=== PATIENT | male | born 1970 | race American Indian/Alaskan Native ===

== ENCOUNTER 2018-08-11 07:05 | Emergency (ER) | payer MEDICAID ==
[2018-08-11 07:26] VITALS: BMI 42.5
--- NOTE | 2018-08-11 08:04 | ED PDOC ---
Lower Extremity Pain/Injury Time Seen by Provider: 08/11/18 07:55 Chief Complaint (Nursing): Lower Extremity Problem/Injury Chief Complaint (Provider): Lower Extremity Problem/Injury History Per: Patient History/Exam Limitations: no limitations Onset/Duration Of Symptoms: Days (14) Additional Complaint(s): 48 years old male with history of diabetes presents to ER for evaluation of left big toe pain onset 2 weeks. Patient reports pain worsens with movement. He states he followed up with a flexboard operator before and was advised to come to ER if pain is persistent. Patient denies any trauma or taking any medication for pain. PMD: non provided Past Medical History Reviewed: Historical Data, Nursing Documentation, Vital Signs Vital Signs: Last Vital Signs Temp 98.9 F 08/11/18 07:26 Pulse 118 H 08/11/18 07:26 Resp 17 08/11/18 07:26 BP 152/79 H 08/11/18 07:26 Pulse Ox 100 08/11/18 07:26 - Medical History PMH: CVA (w/residual left-sided weakness), Diabetes (type II), HTN Denies: HIV, Chronic Kidney Disease - Surgical History Surgical History: No Surg Hx - Family History Family History: States: Unknown Family Hx - Social History Current smoker - smoking cessation education provided: No Alcohol: None Drugs: Denies - Immunization History Hx Tetanus Toxoid Vaccination: Yes Hx Influenza Vaccination: No Hx Pneumococcal Vaccination: No - Home Medications Home Medications: Ambulatory Orders Medication Instructions Recorded Amlodipine Besylate 10 mg PO DAILY 08/03/14 Lisinopril 20 mg PO DAILY 08/03/14 Atorvastatin [Lipitor] 20 mg PO DAILY #0 tab 09/18/16 Aspirin [Adult Low Dose Aspirin EC] 81 mg PO DAILY #30 tablet.dr 10/07/16 Gabapentin [Neurontin] 100 mg PO HS #30 capsule 10/07/16 MetFORMIN [glucoPHAGE] 500 mg PO BID 10/07/16 Amoxicillin/Clavulanate [Augmentin 1 tab PO BID #14 tab 12/07/16 875 MG-125 MG] Cephalexin [cephalexin] 500 mg PO Q6H #28 cap 08/11/18 Ibuprofen [Motrin] 600 mg PO Q6H PRN #20 tab 08/11/18 - Allergies Allergies/Adverse Reactions: Allergies Allergy/AdvReac Type Severity Reaction Status Date / Time No Known Allergies Allergy Verified 11/06/16 08:29 Review of Systems ROS Statement: Except As Marked, All Systems Reviewed And Found Negative Musculoskeletal: Positive for: Foot Pain (Left big toe pain) Physical Exam - Reviewed Nursing Documentation Reviewed: Yes Vital Signs Reviewed: Yes - Physical Exam Appears: Positive for: Non-toxic, No Acute Distress Head Exam: Positive for: ATRAUMATIC, NORMOCEPHALIC Extremity: Positive for: Normal ROM, Tenderness (on palpation to left foor medial to 1st MCP), Other (Old fluctuance with black discolorations of left foot medial to 1st MCP. No erythema, induration or vesicles.) Neurologic/Psych: Positive for: Alert, Oriented (x3) - ECG O2 Sat by Pulse Oximetry: 100 (RA) Pulse Ox Interpretation: Normal Medical Decision Making Medical Decision Making: Time: 801 Initial plan: --Glucose, POC Scribe Attestation: Documented by Meena Field, acting as a scribe for Robyn Ward MD. Provider Scribe Attestation: All medical record entries made by the Scribe were at my direction and personally dictated by me. I have reviewed the chart and agree that the record accurately reflects my personal performance of the history, physical exam, med ica decision making, and the department course for this patient. I have also personally directed, reviewed, and agree with the discharge instructions and disposition. Disposition - Clinical Impression Clinical Impression: Infected blister of left foot, Hyperkeratosis of sole - Disposition Referrals: Julian Valdez MD [Staff Provider] - Disposition: Routine/Home Disposition Time: 10:53 Condition: STABLE Prescriptions: Cephalexin [cephalexin] 500 mg PO Q6H #28 cap Ibuprofen [Motrin] 600 mg PO Q6H PRN #20 tab PRN Reason: Pain, Moderate (4-7) Instructions: Blisters, Wound Infection Forms: [employer] (Italian)
[2018-08-11 11:04] VITALS: BP 137/78; PULSE 78; RESP 19; TEMP 98.6
--- NOTE | 2018-08-11 11:23 | CP.PCM.CON ---
History of Present Illness - History of Present Illness History of Present Illness: Podiatry consult note for Dr. Valdez; 48 y/o M patient with PMH of DM, HTN and CVA seen and evaluate din the ED for pain, blister and callous in his left great toe. Patient states that he started to develop this blister a week ago. Patient states that he has also a hard callous which is painful when he walks on it. He describes the pain as sharp pain. Rate it 6/10. Patient denies any trauma. Patient denies any recent F/N/V/C or SOB. Patient denies any other pedal complaint. PMH: DM, HTN and CVA PSH: back abcess I and D. Allergies: NKDA Social Hx: Denies amoking, EtOH use and illicit drug use. Review of Systems - Review of Systems Review of Systems: As per HPI Past Patient History - Infectious Disease Hx of Infectious Diseases: None - Tetanus Immunizations Tetanus Immunization: Unknown - Past Medical History & Family History Past Medical History?: Yes - Past Social History Alcohol: None Drugs: Denies - CARDIAC Hx Hypertension: Yes - PULMONARY Hx Respiratory Disorders: No - NEUROLOGICAL HX Cerebrovascular Accident: Yes (left side residual) - HEENT Hx HEENT Problems: No - RENAL Hx Chronic Kidney Disease: No - ENDOCRINE/METABOLIC Hx Endocrine Disorders: Yes Hx Diabetes Mellitus Type 2: Yes - HEMATOLOGICAL/ONCOLOGICAL Hx Human Immunodeficiency Virus (HIV): No - INTEGUMENTARY Hx Dermatological Problems: Yes Hx Cellulitis: Yes - MUSCULOSKELETAL/RHEUMATOLOGICAL Hx Falls: No - GASTROINTESTINAL Hx Gastrointestinal Disorders: No - GENITOURINARY/GYNECOLOGICAL Hx Genitourinary Disorders: No - PSYCHIATRIC Hx Psychophysiologic Disorder: No Hx Substance Use: No - SURGICAL HISTORY Hx Surgeries: Yes Other/Comment: 07/26/14 I&D of Left side posterior neck abscess - ANESTHESIA Hx Anesthesia: Yes Hx Anesthesia Reactions: No Hx Malignant Hyperthermia: No Meds Home Medications: Home Medication List Medication Instructions Recorded Confirmed Type Cephalexin [cephalexin] 500 mg PO Q6H #28 cap 08/11/18 Rx Ibuprofen [Motrin] 600 mg PO Q6H PRN #20 tab 08/11/18 Rx Allergies/Adverse Reactions: Allergies Allergy/AdvReac Type Severity Reaction Status Date / Time No Known Allergies Allergy Verified 11/06/16 08:29 Physical Exam - Constitutional Appears: Well, Non-toxic, No Acute Distress - Head Exam Head Exam: ATRAUMATIC, NORMOCEPHALIC - Extremities Exam Additional comments: LE focused exam: Vasc: DP/PT 2/4 b/l. Cap refill < 3 sec in all digits. Temp gradient warm to cool from proximal to distal b/l. No edema. Neuro: [place] sensation intact, protective sensation deminished b/l. Derm: No open lesions, Hemorrhagic blister noted on the plantar medial aspect of the left hallux measuring 2 cm X 2 CM. surrounded by hard hyperkeratotic lesion extending to the plantar aspect of the 1st IPJ. Right pinch callous noted. MSK: Maxim on palpating the blister and the hyperkeratotic lesion in the 1st left digit. Muscle power intact 5/5 in all groups b/l. All foot and joint ROM are within normal limit b/l. - Neurological Exam Neurological exam: Alert, Oriented x3 - Psychiatric Exam Psychiatric exam: Normal Affect, Normal Mood Results - Vital Signs Recent Vital Signs: Last Vital Signs Temp 98.6 F 08/11/18 11:03 Pulse 78 08/11/18 11:03 Resp 19 08/11/18 11:03 BP 137/78 08/11/18 11:03 Pulse Ox 98 08/11/18 11:03 - Labs Labs: Laboratory Results - last 24 hr 08/11/18 08:23 POC Glucose (mg/dL) 91 Assessment & Plan - Assessment and Plan (Free Text) Assessment: 48 y/o M patient seen and evaluated in the ED for Hemorrhagic blister and hyperkeratotic lesion on the left hallux Plan: Patient seen and evaluated in the ED. Plan discussed with attending Dr. Valdez. chart and vitals reviewed; Afebrile./ Explained to the patient that the blister needs to be evacuated and the hyperkeratotic lesion needs to be debrided. Benefits, risks and possible complications of the procedure explained to the patient. Patient agrees for the procedure Informed concent obtained form the patient. Using sterile 15 blade deroofing was done for the blister. The blister expressed hemorrhagic fluid. Culture obtained and sent top lab from the fluid. Using sterile 15 blade callous debrided from the L hallux. Patient tolerated the procedure well with no complications. The blister site dressed with bacitracin and DSD. Patient instructed to dress it at home with bacitracin and DSD. Patient expressed verbal understanding. RX, Keflex 500 mg Q8 PO. Patient will follow up in the podiatry clinic. - Date & Time Date: 08/11/18 Time: 11:17
[2018-08-21 15:56] VITALS: O2SAT 100
== END 2018-08-11 11:04 | disposition home or self-care (01) ==
LOC: H.ER 07:05
DX: S90.822A Blister (nonthermal), left foot, initial encounter (principal); L85.9 Epidermal thickening, unspecified; E11.9 Type 2 diabetes mellitus without complications; I10 Essential (primary) hypertension; Z79.82 Long term (current) use of aspirin; Z79.84 Long term (current) use of oral hypoglycemic drugs; Z86.73 Personal history of transient ischemic attack (TIA), and cerebral infarction without residual deficits